=== PATIENT | female | born 1985 ===

== ENCOUNTER 2021-10-19 05:33 | Inpatient (IN) ==
[2021-10-19] MEDS ORDERED: Azithromycin 500 MG in 0.9 % Sodium Chloride 250 ML IVPB PRN (05:45)
[2021-10-19] MEDS ORDERED: Naloxone 0.4 MG/ML INJ IVP PRN (05:45)
[2021-10-19] MEDS ORDERED: Famotidine 20 MG/2 ML VIAL IVP PRN (05:45)
[2021-10-19] MEDS ORDERED: Metoclopramide 10 MG/2 ML VIAL IVP PRN (05:45)
[2021-10-19] MEDS ORDERED: *HR* Nalbuphine 10 MG/ML AMPUL IV PRN (05:45)
[2021-10-19] MEDS ORDERED: Ondansetron 4 MG/2 ML VIAL IVP PRN (06:00)
[2021-10-19 06:17] LABS: Basophils % 0.3 %; Eosinophils # 0.1 K/mcL (0.0-0.6); Hemoglobin 14.2 g/dL (11.5-15.4); Immature Granulocytes % 0.9 % (0-4); Lymphocytes # 2.3 K/mcL (0.6-4.6); Lymphocytes % 23.7 %; Mean Corpuscular HGB Conc 34.6 g/dL (31.6-35.5); Mean Corpuscular Hemoglobin 31.8 pg (28.0-33.3); Mean Corpuscular Volume 91.7 fL (83.0-100.0); Mean Platelet Volume 10.2 fL (9.4-12.4); Monocytes # 0.8 K/mcL (0.0-1.3); Monocytes % 7.7 %; Neutrophils # 6.5 K/mcL (1.6-8.9); Platelet Count 235 K/mcL (140-400); Red Blood Count 4.47 M/mcL (3.82-4.97); Red Cell Distribution Width 13.2 % (11.5-14.5); Segmented Neutrophils % 66.4 %; White Blood Count 9.9 K/mcL (4.3-11.1)
[2021-10-19] MEDS ORDERED: Ringers Solution, Lactated 1,000 ML ONE (06:38)
[2021-10-19] MEDS ORDERED: EPHEDrine 50 MG/ML VIAL IVP PRN (06:49)
[2021-10-19] MEDS ORDERED: Epidural Premix (fent/bupiv) 110 ML EP SCH (07:00)
[2021-10-19] MEDS ORDERED: Clindamycin 900 MG/50 ML 900 MG/50 ML IV.SOLN IVPB SCH (08:00)
[2021-10-19 10:04] LABS: Amphetamine Screen,Urine Negative ng/mL (Cutoff=1000); Barbiturate Screen,Urine Negative ng/mL (Cutoff=200); Benzodiazepines Screen,Urine Negative ng/mL (Cutoff=200); Cannabinoid Screen,Urine Negative ng/mL (Cutoff = 50); Cocaine Screen,Urine Negative ng/mL (Cutoff= 300); Opiate Screen,Urine Negative ng/mL (Cutoff=300); Phencyclidine Screen,Urine Negative ng/mL (Cutoff=25)
[2021-10-19] MEDS ORDERED: Oxytocin 30 UNIT/503 ML BAG IVC ONE (11:13)
[2021-10-19] MEDS ORDERED: Measles/Mumps/Rubella Vacc 0.5 ML VIAL SQ PRN (13:48)
[2021-10-19] MEDS ORDERED: OXYTOCIN/RINGERS LACTATE 10 UNIT/166.6 ML BAG IVC ONE (13:48)
[2021-10-19] MEDS ORDERED: Lanolin 7 G OINT...G. TP PRN (13:48)
[2021-10-19] MEDS ORDERED: Benzocaine/Menthol 56 GM AEROSOL SPRAY TP PRN (13:48)
[2021-10-19] MEDS ORDERED: Oxytocin 30 UNIT/503 ML BAG IVC SCH (13:48)
[2021-10-19] MEDS ORDERED: Ondansetron ODT 4 MG TAB.RAPDIS SL PRN (13:48)
[2021-10-19] MEDS: Acetaminophen 325 MG TABLET PO SCH (16:16)
[2021-10-19] MEDS: Ibuprofen 600 MG TABLET PO SCH (16:16)
[2021-10-20] MEDS: Acetaminophen 325 MG TABLET PO SCH ×3 (03:35→08:47)
[2021-10-20] MEDS: Ibuprofen 600 MG TABLET PO SCH ×3 (03:36→08:47)
[2021-10-20 07:57] VITALS: BP 136/79; PULSE 86; TEMP 97.9; O2SAT 98
[2021-10-20] MEDS ORDERED: Prenatal Vit/FA 1 EACH TABLET PO SCH (09:00)
[2021-10-20] MEDS: DiphenhydraMINE CREAM 28.4 GM TUBE TP STA (09:48)
== END 2021-10-20 11:57 | disposition home or self-care (01) | DRG 560 ==
LOC: 1NENULAB 05:33 → 1NENUOBS 14:25
PROVIDERS: ADMIT Advanced Practice Midwife; ATTEND Advanced Practice Midwife